=== PATIENT | male | born 1980 | race American Indian/Alaskan Native ===

== ENCOUNTER 2018-07-19 07:32 | Emergency (ER) | payer BC, OTHER ==
[2018-07-19] MEDS ORDERED: BENADRYL IV ONE (09:52)
[2018-07-19] MEDS ORDERED: SOLU-Medrol IV ONE (09:52)
[2018-07-19] MEDS ORDERED: PEPCID IV ONE (09:52)
[2018-07-19] MEDS ORDERED: ZOFRAN IV ONE (09:56)
--- NOTE | 2018-07-19 09:56 | Emergency Department Report ---
HPI - General Chief Complaint: Allergic Reaction Time Seen by Provider: 07/19/18 09:46 - HPI HPI: 38-year-old -[place]ron[place] male presents to the emergency department with a complaint of allergic reaction after eating at [facility]. 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 Patient put into his food but ended up having onions in it. It caused him to have nausea and vomiting, and itching in his throat. He denies any shortness of breath, drooling, trismus, fever. He took some Claritin for his symptoms and then came in for evaluation. He otherwise has a past medical history of hypertension and migraine headaches. ED Past Medical Hx - Past Medical History Hx Hypertension: Yes Hx Diabetes: Yes (11/01) Hx Headaches / Migraines: Yes - Surgical History Additional Surgical History: left eye - Social History Smoking Status: Current Every Day Smoker Substance Use Type: None - Medications Home Medications: Home Medications Medication Instructions Recorded Confirmed Last Taken Type Insulin NPH, Human [NovoLIN N] 1 unit SQ BIDDIAB 01/17/15 01/17/15 01/17/15 History Ondansetron (Nf) [Zofran TAB] 8 mg PO Q8HR PRN #20 tablet 01/17/15 Unknown Rx RX: traMADol [Ultram 50 MG tab] 50 mg PO Q4HR PRN #12 tablet 01/17/15 Unknown Rx HYDROcodone/APAP 10-325 [[place] 1 each PO Q8HR PRN #8 tablet 02/28/15 Unknown Rx 10/325] RX: Cyclobenzaprine [Flexeril 10 10 mg PO TID PRN #12 tablet 02/28/15 Unknown Rx MG TAB] Acetaminophen/Codeine [Tylenol #3] 1 tab PO Q6H PRN #15 tab 03/27/15 Unknown Rx methOCARBAMOL [Robaxin TAB] 500 mg PO BID #20 tab 03/27/15 Unknown Rx Benzonatate [Tessalon Perle] 100 mg PO Q8H PRN #20 capsule 03/23/18 Unknown Rx Ibuprofen [Motrin] 600 mg PO Q8H PRN #20 tablet 03/23/18 Unknown Rx RX: Azithromycin [Zithromax Z-TONY] 250 mg PO DAILY #6 tablet 03/23/18 Unknown Rx Famotidine [Pepcid] 20 mg PO BID #6 tablet 07/19/18 Unknown Rx RX: predniSONE [Deltasone] 20 mg PO BID #6 tab 07/19/18 Unknown Rx diphenhydrAMINE [Benadryl CAP] 25 mg PO Q8HR PRN #9 capsule 07/19/18 Unknown Rx ED Review of Systems ROS: Stated complaint: ALLERGIC REACTION TO ONIONS Other details as noted in HPI Comment: All other systems reviewed and negative Constitutional: denies: chills, fever Eyes: denies: eye pain, vision change ENT: throat pain. denies: ear pain Respiratory: denies: cough, shortness of breath Cardiovascular: denies: chest pain, palpitations Gastrointestinal: nausea, vomiting Genitourinary: denies: dysuria, frequency Musculoskeletal: denies: back pain, arthralgia Skin: denies: rash, lesions Neurological: denies: headache, weakness Physical Exam - Physical Exam Vital Signs: Vital Signs 07/19/18 07:36 Temperature 97.9 F Pulse Rate 83 Respiratory 16 Rate Blood Pressure 166/105 O2 Sat by Pulse 100 Oximetry Physical Exam: GENERAL: The patient is well-developed well-nourished. HEENT: Normocephalic. Atraumatic. Patient has moist mucous membranes. Oropharynx is clear. Mallampati of 1. EYES: Extraocular motions are intact. Pupils are equal and reactive to light bilaterally. NECK: Supple. Trachea is midline. CHEST/LUNGS: Clear to auscultation. There is no respiratory distress noted. HEART/CARDIOVASCULAR: Regular. There is no tachycardia. There is no obvious murmur. ABDOMEN: Abdomen is soft, nontender. Patient has normal bowel sounds. There is no abdominal distention. SKIN: Skin is warm and dry. NEURO: The patient is awake, alert, and oriented. The patient is cooperative. The patient has no focal neurologic deficits. The patient has normal speech. MUSCULOSKELETAL: There is no tenderness or deformity. There is no evidence of acute injury. ED Course Vital Signs 07/19/18 07:36 Temperature 97.9 F Pulse Rate 83 Respiratory 16 Rate Blood Pressure 166/105 O2 Sat by Pulse 100 Oximetry ED Medical Decision Making - Medical Decision Making Patient presents with questionable allergic reaction after exposure to a onions in his food, which he is known to be allergic to. He has a scratchy throat and had nausea and vomiting shortly after eating them. He is awake and alert and in no acute distress in the emergency department. He has a patent airway and posterior pharynx. He was given Solu-Medrol, Pepcid and Benadryl. He was reevaluated multiple times throughout his ED course and says that he is feeling much better. He will be discharged home with a prescription for steroids, Pep sarah and Benadryl. He has been instructed to follow up with primary care and return to the ER with any worsening of his symptoms or any acute distress. - Differential Diagnosis angioedema, allergic reaction, anaphylaxis Critical Care Time: No Critical care attestation.: If time is entered above; I have spent that time in minutes in the direct care of this critically ill patient, excluding procedure time. ED Disposition Clinical Impression: Elevated blood pressure reading Allergic reaction Qualifiers: Encounter type: initial encounter Qualified Code(s): T78.40XA - Allergy, unspecified, initial encounter Disposition: DC-01 TO HOME OR SELFCARE Is pt being admited?: No Condition: Stable Instructions: Food Allergy (ED), Anaphylaxis (ED) Additional Instructions: Please follow up with a primary care physician. Return to the emergency department with any return or worsening of your symptoms, any acute distress. Prescriptions: diphenhydrAMINE [Benadryl CAP] 25 mg PO Q8HR PRN #9 capsule PRN Reason: Allergic Reaction Famotidine [Pepcid] 20 mg PO BID #6 tablet RX: predniSONE [Deltasone] 20 mg PO BID #6 tab Referrals: PRIMARY CARE, [Primary Care Provider] - 2-3 Days Time of Disposition: 11:39
[2018-07-19 12:14] VITALS: BP 158/72
== END 2018-07-19 11:48 | disposition home or self-care (01) ==
LOC: ED 07:32
DX: R11.2 Nausea with vomiting, unspecified (principal); T78.1XXA Other adverse food reactions, not elsewhere classified, initial encounter; I10 Essential (primary) hypertension; E11.9 Type 2 diabetes mellitus without complications; G43.909 Migraine, unspecified, not intractable, without status migrainosus; F17.200 Nicotine dependence, unspecified, uncomplicated; Z88.6 Allergy status to analgesic agent; Z91.012 Allergy to eggs; Z91.018 Allergy to other foods; Z79.4 Long term (current) use of insulin; X58.XXXA Exposure to other specified factors, initial encounter
CPT/HCPCS: 96374; 96375; 99282; J1200; J2405; J2930

== ENCOUNTER 2019-06-04 05:18 | Emergency (ER) | payer SELFPAY ==
[2019-06-04] MEDS ORDERED: diphenhydrAMINE 50 MG/ML VIAL IV ONE (05:55)
[2019-06-04] MEDS ORDERED: METOCLOPRAMIDE 10 MG/2 ML INJ IV ONE (05:55)
[2019-06-04] MEDS ORDERED: SODIUM CHLORIDE 0.9% 1000 ML 1,000 ML IV ONE (05:55)
[2019-06-04 06:28] LABS: Basophils % (Auto) 0.8 % (0.0-1.8); Eosinophils # (Auto) 0.2 K/mm3 (0.0-0.4); Eosinophils % (Auto) 3.2 % (0.0-4.3); Hematocrit 39.2 % (35.5-45.6); Hemoglobin 12.8 gm/dl (11.8-15.2); Mean Corpuscular HGB Conc 33 % (32-34); Mean Corpuscular Volume 81 fl (84-94); Monocytes # (Auto) 0.5 K/mm3 (0.0-0.8); Monocytes % (Auto) 8.4 % (0.0-7.3); Platelet Count 245 K/mm3 (140-440); Red Blood Count 4.83 M/mm3 (3.65-5.03); Red Cell Distribution Width 14.9 % (13.2-15.2)
--- NOTE | 2019-06-04 06:42 | Emergency Department Report ---
ED General Adult HPI - General Chief complaint: Headache Stated complaint: MIGRAINE HEADACHE,PAIN BEHIND LEFT EYE Time Seen by Provider: 06/04/19 05:37 Source: patient Mode of arrival: Ambulatory Limitations: No Limitations - History of Present Illness Initial comments: Patient is a 39-year-old male presents emergency room with complaints of a headache behind the left eye that began approximately an hour and a half ago. He states that it was at work when it started to bother him. 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 He denies any vision changes in the right eye. He denies any nausea, vomiting, weakness. He states he has some tingling in the left hand. He has a past medical history of migraines and states that this feels similar to previous migraines. He states he also has a history of hypertension and DM. He has an allergy to penicillin and oxycodone. - Related Data Home Medications Medication Instructions Recorded Confirmed Last Taken Insulin NPH, Human [NovoLIN N] 1 unit SQ BIDDIAB 01/17/15 01/17/15 01/17/15 Previous Rx's Medication Instructions Recorded Last Taken Type Ondansetron (Nf) [Zofran TAB] 8 mg PO Q8HR PRN #20 tablet 01/17/15 Unknown Rx traMADoL [Ultram 50 MG tab] 50 mg PO Q4HR PRN #12 tablet 01/17/15 Unknown Rx Cyclobenzaprine [Flexeril 10 MG 10 mg PO TID PRN #12 tablet 02/28/15 Unknown Rx TAB] HYDROcodone/APAP 10-325 [[place] 1 each PO Q8HR PRN #8 tablet 02/28/15 Unknown Rx 10/325] Acetaminophen/Codeine [Tylenol #3] 1 tab PO Q6H PRN #15 tab 03/27/15 Unknown Rx methOCARBAMOL [Robaxin TAB] 500 mg PO BID #20 tab 03/27/15 Unknown Rx Azithromycin [Zithromax Z-TONY] 250 mg PO DAILY #6 tablet 03/23/18 Unknown Rx Benzonatate [Tessalon Perle] 100 mg PO Q8H PRN #20 capsule 03/23/18 Unknown Rx Ibuprofen [Motrin] 600 mg PO Q8H PRN #20 tablet 03/23/18 Unknown Rx Famotidine [Pepcid] 20 mg PO BID #6 tablet 07/19/18 Unknown Rx diphenhydrAMINE [Benadryl CAP] 25 mg PO Q8HR PRN #9 capsule 07/19/18 Unknown Rx predniSONE [Deltasone] 20 mg PO BID #6 tab 07/19/18 Unknown Rx Polymyxin B Sulf/Trimethoprim 1 drop OP QID 7 Days #10 drops 06/04/19 Unknown Rx [Polytrim Eye Drops 50219dptrm/0.1%] Allergies Allergy/AdvReac Type Severity Reaction Status Date / Time acetaminophen [From Percocet] Allergy Unknown Verified 07/19/18 07:35 cheese Allergy Vomiting Verified 07/19/18 07:35 egg Allergy Anaphylaxis Verified 07/19/18 07:35 milk Allergy Vomiting Verified 07/19/18 07:35 onion Allergy Anaphylaxis Verified 07/19/18 07:35 oxycodone [From Percocet] Allergy Unknown Verified 07/19/18 07:35 ED Review of Systems ROS: Stated complaint: MIGRAINE HEADACHE,PAIN BEHIND LEFT EYE Other details as noted in HPI Comment: All other systems reviewed and negative ED Past Medical Hx - Past Medical History Previous Medical History?: Yes Hx Hypertension: Yes Hx Diabetes: Yes (11/01) Hx Headaches / Migraines: Yes - Surgical History Past Surgical History?: Yes Additional Surgical History: left eye - Social History Smoking Status: Current Every Day Smoker Substance Use Type: None - Medications Home Medications: Home Medications Medication Instructions Recorded Confirmed Last Taken Type Insulin NPH, Human [NovoLIN N] 1 unit SQ BIDDIAB 01/17/15 01/17/15 01/17/15 History Ondansetron (Nf) [Zofran TAB] 8 mg PO Q8HR PRN #20 tablet 01/17/15 Unknown Rx traMADoL [Ultram 50 MG tab] 50 mg PO Q4HR PRN #12 tablet 01/17/15 Unknown Rx Cyclobenzaprine [Flexeril 10 MG 10 mg PO TID PRN #12 tablet 02/28/15 Unknown Rx TAB] HYDROcodone/APAP 10-325 [[place] 1 each PO Q8HR PRN #8 tablet 02/28/15 Unknown Rx 10/325] Acetaminophen/Codeine [Tylenol #3] 1 tab PO Q6H PRN #15 tab 03/27/15 Unknown Rx methOCARBAMOL [Robaxin TAB] 500 mg PO BID #20 tab 03/27/15 Unknown Rx Azithromycin [Zithromax Z-TONY] 250 mg PO DAILY #6 tablet 03/23/18 Unknown Rx Benzonatate [Tessalon Perle] 100 mg PO Q8H PRN #20 capsule 03/23/18 Unknown Rx Ibuprofen [Motrin] 600 mg PO Q8H PRN #20 tablet 03/23/18 Unknown Rx Famotidine [Pepcid] 20 mg PO BID #6 tablet 07/19/18 Unknown Rx diphenhydrAMINE [Benadryl CAP] 25 mg PO Q8HR PRN #9 capsule 07/19/18 Unknown Rx predniSONE [Deltasone] 20 mg PO BID #6 tab 07/19/18 Unknown Rx Polymyxin B Sulf/Trimethoprim 1 drop OP QID 7 Days #10 drops 06/04/19 Unknown Rx [Polytrim Eye Drops 13119tllrd/0.1%] ED Physical Exam - General Limitations: No Limitations General appearance: alert, in no apparent distress - Head Head exam: Present: atraumatic, normocephalic - Eye Eye exam: Present: other (right pupil is reactive and responsive to light, left eye prosthesis, EOMI, there is mucus drainage and internal hordeolum present in the left eye socket). Absent: periorbital swelling, periorbital tenderness - ENT ENT exam: Present: mucous membranes moist - Respiratory Respiratory exam: Present: normal lung sounds bilaterally. Absent: respiratory distress, wheezes, rales, rhonchi, stridor, chest wall tenderness, accessory muscle use, decreased breath sounds, prolonged expiratory - Cardiovascular Cardiovascular Exam: Present: regular rate, normal rhythm, normal heart sounds. Absent: systolic murmur, diastolic murmur, rubs - Neurological Exam Neurological exam: Present: alert, oriented X3, CN II-XII intact, normal gait, other (normal finger to nose, normal heel to culver, no pronator drift, no facial asymmetry, equal hotel custodian strength, 5/5 strength in the BUE/BLE, sensation intact throughout, no focal neuro deficit). Absent: motor sensory deficit - Psychiatric Psychiatric exam: Present: normal affect, normal mood - Skin Skin exam: Present: warm, dry, intact ED Course Vital Signs 06/04/19 06/04/19 05:21 08:22 Temperature 97.9 F Pulse Rate 84 81 Respiratory 16 Rate Blood Pressure 155/109 Blood Pressure 150/100 [Left] O2 Sat by Pulse 100 100 Oximetry ED Medical Decision Making - Lab Data Result diagrams: 06/04/19 06:07 06/04/19 06:07 - Medical Decision Making 7:10 AM signed out to Kamla Bain PA-C pending labs, CT head, improvement of headache please see his note for disposition and counseling Critical care attestation.: If time is entered above; I have spent that time in minutes in the direct care of this critically ill patient, excluding procedure time. ED Disposition Clinical Impression: Pain, eye, left Headache Qualifiers: Headache type: unspecified Headache chronicity pattern: acute headache Intractability: not intractable Qualified Code(s): R51 - Headache Disposition: DC- TO HOME OR SELFCARE Is pt being admited?: No Does the pt Need Aspirin: No Condition: Stable Instructions: Acute Headache (ED) Additional Instructions: The pt was told that he needs to f/u with his neurologist. He was also explained that due to eye L eye pain and irritation, he will be referred to ophthalmology. Pt will continue his Ibuprofen as directed and will be prescribed Polytrim for his L eye irritation. He will see ER as needed. Pt verbalized understanding and agreed with the plan of care. Pt will call a ride to transport him upon discharge. Prescriptions: Polymyxin B Sulf/Trimethoprim [Polytrim Eye Drops 92958hkkve/0.1%] 1 drop OP QID 7 Days #10 drops Referrals: GUY BASURTO MD [Staff Physician] - 3-5 Days PRIMARY CARE, [Primary Care Provider] - 3-5 Days
[2019-06-04 07:06] LABS: BUN/Creatinine Ratio 10; Blood Urea Nitrogen 9 mg/dL (9-20); Calcium 9.5 mg/dL (8.4-10.2); Hemolysis Index 10
--- NOTE | 2019-06-04 07:19 | Cat Scan Report ---
CT HEAD/BRAIN WO CON INDICATION / CLINICAL INFORMATION: BRADLEY, tingling L hand, drainage behind prosthetic eye. TECHNIQUE: All CT scans at this location are performed using CT dose reduction for ALARA by means of automated e xposure control. COMPARISON: None available. FINDINGS: The ventricular system is normal in size and configuration. No focal lesion or mass effect is seen. T here is no evidence of intracranial hemorrhage or major vessel occlusion. The calvarium is intact. The visualized paranasal sinuses and mastoid air cells are clear. 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 IMPRESSION:No acute abnormality. Signer Name: Beka Blackwell MD Signed: 06/04/2019 7:14 AM Workstation Name: [id number]
--- NOTE | 2019-06-04 08:00 | Emergency Department Report ---
ED Eye Problem HPI - General Chief complaint: Headache Stated complaint: MIGRAINE HEADACHE,PAIN BEHIND LEFT EYE Time Seen by Provider: 06/04/19 05:37 Source: patient Mode of arrival: Ambulatory Limitations: No Limitations - Related Data Home Medications Medication Instructions Recorded Confirmed Last Taken Insulin NPH, Human [NovoLIN N] 1 unit SQ BIDDIAB 01/17/15 01/17/15 01/17/15 Previous Rx's Medication Instructions Recorded Last Taken Type Ondansetron (Nf) [Zofran TAB] 8 mg PO Q8HR PRN #20 tablet 01/17/15 Unknown Rx traMADoL [Ultram 50 MG tab] 50 mg PO Q4HR PRN #12 tablet 01/17/15 Unknown Rx Cyclobenzaprine [Flexeril 10 MG 10 mg PO TID PRN #12 tablet 02/28/15 Unknown Rx TAB] HYDROcodone/APAP 10-325 [[place] 1 each PO Q8HR PRN #8 tablet 02/28/15 Unknown Rx 10/325] Acetaminophen/Codeine [Tylenol #3] 1 tab PO Q6H PRN #15 tab 03/27/15 Unknown Rx methOCARBAMOL [Robaxin TAB] 500 mg PO BID #20 tab 03/27/15 Unknown Rx Azithromycin [Zithromax Z-TONY] 250 mg PO DAILY #6 tablet 03/23/18 Unknown Rx Benzonatate [Tessalon Perle] 100 mg PO Q8H PRN #20 capsule 03/23/18 Unknown Rx Ibuprofen [Motrin] 600 mg PO Q8H PRN #20 tablet 03/23/18 Unknown Rx Famotidine [Pepcid] 20 mg PO BID #6 tablet 07/19/18 Unknown Rx diphenhydrAMINE [Benadryl CAP] 25 mg PO Q8HR PRN #9 capsule 07/19/18 Unknown Rx predniSONE [Deltasone] 20 mg PO BID #6 tab 07/19/18 Unknown Rx Polymyxin B Sulf/Trimethoprim 1 drop OP QID 7 Days #10 drops 06/04/19 Unknown Rx [Polytrim Eye Drops 44313czbnr/0.1%] Allergies Allergy/AdvReac Type Severity Reaction Status Date / Time acetaminophen [From Percocet] Allergy Unknown Verified 07/19/18 07:35 cheese Allergy Vomiting Verified 07/19/18 07:35 egg Allergy Anaphylaxis Verified 07/19/18 07:35 milk Allergy Vomiting Verified 07/19/18 07:35 onion Allergy Anaphylaxis Verified 07/19/18 07:35 oxycodone [From Percocet] Allergy Unknown Verified 07/19/18 07:35 ED Review of Systems ROS: Stated complaint: MIGRAINE HEADACHE,PAIN BEHIND LEFT EYE Other details as noted in HPI ED Past Medical Hx - Past Medical History Previous Medical History?: Yes Hx Hypertension: Yes Hx Diabetes: Yes (11/01) Hx Headaches / Migraines: Yes - Surgical History Past Surgical History?: Yes Additional Surgical History: left eye - Social History Smoking Status: Current Every Day Smoker Substance Use Type: None - Medications Home Medications: Home Medications Medication Instructions Recorded Confirmed Last Taken Type Insulin NPH, Human [NovoLIN N] 1 unit SQ BIDDIAB 01/17/15 01/17/15 01/17/15 History Ondansetron (Nf) [Zofran TAB] 8 mg PO Q8HR PRN #20 tablet 01/17/15 Unknown Rx traMADoL [Ultram 50 MG tab] 50 mg PO Q4HR PRN #12 tablet 01/17/15 Unknown Rx Cyclobenzaprine [Flexeril 10 MG 10 mg PO TID PRN #12 tablet 02/28/15 Unknown Rx TAB] HYDROcodone/APAP 10-325 [[place] 1 each PO Q8HR PRN #8 tablet 02/28/15 Unknown Rx 10/325] Acetaminophen/Codeine [Tylenol #3] 1 tab PO Q6H PRN #15 tab 03/27/15 Unknown Rx methOCARBAMOL [Robaxin TAB] 500 mg PO BID #20 tab 03/27/15 Unknown Rx Azithromycin [Zithromax Z-TONY] 250 mg PO DAILY #6 tablet 03/23/18 Unknown Rx Benzonatate [Tessalon Perle] 100 mg PO Q8H PRN #20 capsule 03/23/18 Unknown Rx Ibuprofen [Motrin] 600 mg PO Q8H PRN #20 tablet 03/23/18 Unknown Rx Famotidine [Pepcid] 20 mg PO BID #6 tablet 07/19/18 Unknown Rx diphenhydrAMINE [Benadryl CAP] 25 mg PO Q8HR PRN #9 capsule 07/19/18 Unknown Rx predniSONE [Deltasone] 20 mg PO BID #6 tab 07/19/18 Unknown Rx Polymyxin B Sulf/Trimethoprim 1 drop OP QID 7 Days #10 drops 06/04/19 Unknown Rx [Polytrim Eye Drops 85008rrvjx/0.1%] ED Physical Exam - General Limitations: No Limitations General appearance: alert, in no apparent distress ED Course Vital Signs 06/04/19 05:21 Temperature 97.9 F Pulse Rate 84 Blood Pressure 155/109 O2 Sat by Pulse 100 Oximetry ED Medical Decision Making - Lab Data Result diagrams: 06/04/19 06:07 06/04/19 06:07 - Radiology Data [facility] [address] [place] [address] Cat Scan Report Signed Patient: LAURA MICHELLE JR MR#: [id number] : 1980 Acct:[id number] Age/Sex: 39 / M ADM Date: 06/04/19 Loc: ED Attending Dr: Ordering Physician: WILTON YUNG Date of Service: 06/04/19 Procedure(s): CT head/brain wo con Accession Number(s): [id number] cc: WILTON YUNG CT HEAD/BRAIN WO CON INDICATION / CLINICAL INFORMATION: BRADLEY, tingling L hand, drainage behind prosthetic eye. TECHNIQUE: All CT scans at this location are performed using CT dose reduction for ALARA by means of automated exposure control. COMPARISON: None available. FINDINGS: The ventricular system is normal in size and configuration. No focal lesion or mass effect is seen. There is no evidence of intracranial hemorrhage or major vessel occlusion. The calvarium is intact. The visualized paranasal sinuses and mastoid air cells are clear. 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 IMPRESSION:No acute abnormality. Signer Name: Beka Blackwell MD Signed: 06/04/2019 7:14 AM Workstation Name: [id number] Transcribed By: RT Dictated By: Beka Blackwell MD Electronically Authenticated By: Beka Blackwell MD Signed Date/Time: 06/04/19713 DD/ 1 TD/TT: - Medical Decision Making Pt was reassessed and he stated that his headache and L eye pain has decreased form a 10 to a 4. He then stated that he sees a neurologist. The pt was told that he needs to f/u with his neurologist. He was also explained that due to eye L eye pain and irritation, he will be referred to ophthalmology. Pt will continue his Ibuprofen as directed and will be prescribed Polytrim for his L eye irritation. He will see ER as needed. Pt verbalized understanding and agreed with the plan of care. Critical care attestation.: If time is entered above; I have spent that time in minutes in the direct care of this critically ill patient, excluding procedure time. ED Disposition Clinical Impression: Headache, Pain, eye, left Disposition: DC-01 TO HOME OR SELFCARE Is pt being admited?: No Does the pt Need Aspirin: No Condition: Stable Instructions: Acute Headache (ED) Additional Instructions: The pt was told that he needs to f/u with his neurologist. He was also explained that due to eye L eye pain and irritation, he will be referred to ophthalmology. Pt will continue his Ibuprofen as directed and will be prescribed Polytrim for his L eye irritation. He will see ER as needed. Pt verbalized understanding and agreed with the plan of care. Pt will call a ride to transport him upon discharge. Prescriptions: Polymyxin B Sulf/Trimethoprim [Polytrim Eye Drops 79071sbgut/0.1%] 1 drop OP QID 7 Days #10 drops Referrals: PRIMARY CARE, [Primary Care Provider] - 3-5 Days GUY BASURTO MD [Staff Physician] - 3-5 Days Time of Disposition: 08:05
[2019-06-04 08:24] VITALS: BP 150/100
== END 2019-06-04 08:22 | disposition home or self-care (01) ==
LOC: ED 05:18
DX: G43.909 Migraine, unspecified, not intractable, without status migrainosus (principal); H92.02 Otalgia, left ear; I10 Essential (primary) hypertension; E11.9 Type 2 diabetes mellitus without complications; F17.200 Nicotine dependence, unspecified, uncomplicated
CPT/HCPCS: 36415; 70450; 80048; 85025; 96374; 96375; 99284; J1200; J2765; J7030